=== PATIENT | female | born 1985 | race Two or more races ===

== ENCOUNTER 2020-12-31 16:32 | Outpatient (CLI) | payer OTHER ==
[~2020-12-31] VITALS: Ht 165.1 cm; Wt 86.0 kg
[2020-12-31 16:46] VITALS: BP 123/75
[2020-12-31] MEDS ORDERED: B-12100T2 PO (16:54)
[2020-12-31] MEDS ORDERED: FERR325T82 PO (16:54)
[2020-12-31] MEDS ORDERED: PULM0.25 NEB (16:54)
[2020-12-31] MEDS ORDERED: MAGN250T7 PO (16:54)
[2020-12-31] MEDS ORDERED: TUMS500C PO (16:54)
[2020-12-31] MEDS ORDERED: PULM1SUS INH (16:54)
[2020-12-31] MEDS ORDERED: MONT4CHW8 PO (16:54)
[2020-12-31] MEDS ORDERED: PRENTAB9 PO (16:54)
[2020-12-31] MEDS ORDERED: VITA100T59 PO (16:54)
[2020-12-31] MEDS ORDERED: LOMOTIL 2.5MG/0.025MG TABLET PO ONE (19:15)
--- NOTE | 2020-12-31 19:20 | IPNPDOC ---
Obstetrical Progress Note Date of Service Dec 31, 2020 Subjective 35 yo G1 @ 34W4D presents with c/o 3 days of diarrhea. reports non bloody and abdominal blaoting. she reports that today she started having abdominal cramps and come in to be checked. she was on quarantine for 10 days after a cowoker tested positive for covid and finished her isolation 2 days ago. she is lactose intolerante and had ice cream but reports after she started having diarrhea. she denies any nausea or vomiting, but not increased in acid reflux. she has no other concerns. exam bp 123/70's gen: well appeariung gravid female abd: gravid, non tender fht: 140, mOD BRIAN,+Accels,-decel---cat I tracing [place]: uterine irritability noted A/P 35 yo G1 @ 34W4D presents with c/o 3 days of diarrhea. HEMODYNAMICALLY STABLE. Fetus was initially with minimal variability and patient was given 1L of IVF. aftert that fetus became reactive. -will give lomotil and place at [place] [facility] -will test for covid vaccine- will call patient if possitive results for quarantine purpose -f/ u as oreviously scheduled on wednesday. Objective Vital Signs Date Time Temp Pulse Resp B/P (MAP) Pulse Ox O2 Delivery O2 Flow Rate FiO2 12/31/20 16:46 74 18 123/75 (91) JESSE VOSS MD Dec 31, 2020 7:20 pm
[2020-12-31] MEDS ORDERED: LOMO2.5T PO (19:21)
== END 2020-12-31 19:41 | disposition home or self-care (01) ==
LOC: M LDO 16:32
PROVIDERS: ATTEND Obstetrics & Gynecology
DX: O26.893 Other specified pregnancy related conditions, third trimester (principal); R25.2 Cramp and spasm; Z3A.34 34 weeks gestation of pregnancy; O99.283 Endocrine, nutritional and metabolic diseases complicating pregnancy, third trimester; E73.9 Lactose intolerance, unspecified; Z20.822 Contact with and (suspected) exposure to COVID-19; Z88.6 Allergy status to analgesic agent
CPT/HCPCS: 59025; G0378; G0463; U0002

== ENCOUNTER 2021-02-14 23:47 | Inpatient (IN) | payer OTHER ==
[~2021-02-14] VITALS: Ht 165.1 cm; Wt 90.7 kg
[~2021-02-14 23:47] MED LIST: B-12100T2 PO; FERR325T82 PO; LOMO2.5T PO; MAGN250T7 PO; MONT4CHW8 PO; PRENTAB9 PO; PULM0.25 NEB; PULM1SUS INH; TUMS500C PO; VITA100T59 PO
[2021-02-15] VITALS (27 sets, daily range): BP systolic 109–162; BP diastolic 55–96
--- NOTE | 2021-02-15 01:28 | HPEPDOC ---
Obstetrical History & Physical General Date of Admission History of Present Illness 35yo at 41+1 presents for contractions. Denies vaginal bleeding, loss of fluid. Endorses positive movement. 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 Surgical History: Other (lumpectomy 2006) Family History Family History Mother - high blood pressure, high cholesterol, breast cancer Father - high blood pressure Maternal grandmother - breast cancer, high blood pressure, stroke, obesity Paternal grandfather - stroke Social History Marital Status: Family situation: Spouse/partner home Psychosocial History: No pertinent psych hx * Smoker: non-smoker Alcohol: Denies Drugs: denies Abuse Violence Screening Have you been hit/kicked/slapp: No Have you been sexually assault: No Imunizations Tdap status: current Influenza Status: current Allergies Coded Allergies: ibuprofen (Verified Allergy, Severe, tightness in throat, 12/31/20) Medications Scheduled Ascorbic Acid (Vitamin C) 100 Mg Tablet, 1 TAB PO QPM Budesonide (Pulmicort) 0.25 Mg/2 Ml Ampul.neb, 1 VIAL NEB BID Cyanocobalamin (Vitamin B-12) (Vitamin B-12) 100 Mcg Tablet, 1 TAB PO DAILY Diphenoxylate HCl/Atropine (Lomotil 2.5-0.025 mg Tablet) 1 Each Tablet, 1 TAB PO QID Ferrous Sulfate (Iron) 325 Mg Tablet, 1 TAB PO BID Magnesium Oxide (Magnesium) 250 Mg Tablet, 250 MG PO DAILY Montelukast Sodium (Montelukast Sodium) 4 Mg Tab.chew, 1 TAB PO QPM No.137/Iron/Folic Acd ( Vitamin Tablet) 1 Each Tablet, 1 TAB PO DAILY Scheduled PRN Calcium Carbonate (Tums) 200 Mg Tab.chew, 2 TAB PO QID PRN for INDIGESTION Miscellaneous Medications Budesonide (Pulmicort) 1 Mg/2 Ml Ampul.neb, 1 MG INH Physical Examination Physical Examination GENERAL: Alert and oriented times three. ABDOMEN: Gravid and non-tender to touch. FETUS: Is vertex (VTX) by ultrasound HEART RATE: Regular rate . LUNGS: nonlabored breathing EXTREMITIES: No edema. Vital Signs/I&O Vital Signs Date Time Temp Pulse Resp B/P (MAP) Pulse Ox O2 Delivery O2 Flow Rate FiO2 02/15/21 00:08 98.4 80 18 130/81 (97) Laboratory Data CBC/BMP hct 30.8 plt 230 [id number] Urine Culture: No Growth Pertinent Laboratoy Data Blood Type: AB+ RBC Antibody Screen: Negative HIV: Negative Hepatitis B: Negative Rapid Plasma Reagin: Nonreactive Rubella: Immune Varicella: Immune Chlamydia/Gonorrhea: Negative Group B Streptococcus: Negative Quad Screen Test: Negative ([id number]) Glucose Tolerance Test: 119 Anatomy Ultrasound Placenta Location: Posterior Normal Anatomy: Yes Placenta Previa: No Steroid Therapy Steroid Therapy: No Vaginal Examination Dilation: 3 cm Presentation: Cephalic presentation Assessment Heart Rate (FHR): 135 Variability: Moderate Accelerations: Positive Decelerations: None Tocometer Contractions: Yes Frequency: regular, every 2-5 min. Multi-drug resistant Organism: No history of MDRO Assessment/Plan Assessment Khalida Morin is a 35-year-old at 41+1 weeks by LMP and 1T ultrasound. Presents to Labor and Delivery (L&D) in labor. GBS negative. Cephalic by ultrasound and leopolds. GBS negative. Currently 3cm, category I tracing raghav regularly. Problem list asthma migraines anemia oral HSV no history of genital outbreak/lesions Plan Admit and orient. Haul Driver and consent. Diet: clear liquid. Group B Streptococcus (GBS) [negative]. Labs and intravenous (IV) per unit protocol. Counseled on oxytocin and labor augmentation. Lactated Ringers (LR) at 125 mL/hr. Anticipate [normal spontaneous delivery ()]. C-S as appropriate. Labor and Delivery Counseling I counseled her on the risks of vaginal delivery including but not limited to infection, bleeding. Described hemorrhage response in detail including need for blood transfusion and hysterectomy as life saving measures. Described oxytocin labor augmentation process and continuous monitoring. Described indications for delivery, forceps and vacuum deliveries. Risks of delivery including bleeding, infection, damage to nearby structures. Talked about shoulder dystocia and necessary measures including possible inte ntional breaking of clavicle or other bones to save the baby. She indicated understanding and all questions were answered. SCOTT CONTE DO Feb 15, 2021 01:28
[2021-02-15] MEDS ORDERED: ONDANSETRON 4MG/2ML VIAL IV PRN ×3 (01:40→15:10)
[2021-02-15 01:50] LABS: HEMATOCRIT 39.8 % (36.0-47.0); HEMOGLOBIN 13.7 g/dl (12.0-15.5); MEAN CORPUSCULAR HEMOGLOBIN 32.1 pg (27.0-33.0); MEAN CORPUSCULAR HGB CONC 34.4 g/dl (32.0-36.5); MEAN CORPUSCULAR VOLUME 93.2 fl (80.0-96.0); PLATELET COUNT, AUTOMATED 197 10^3/uL (150-450); RED BLOOD COUNT 4.27 10^6/uL (4.00-5.40); WHITE BLOOD COUNT 14.7 10^3/uL (4.0-10.0)
[2021-02-15] MEDS ORDERED: PROMETHAZINE INJ 25 MG/ML VIAL (J2550) IV ONE (03:05)
[2021-02-15] MEDS: LR 1,000 ML IV SCH ×2 (03:50→09:15)
--- NOTE | 2021-02-15 06:48 | IPNPDOC ---
Obstetrical Progress Note Date of Service Feb 15, 2021 Subjective Pt uncomfortable appearing, currently on birthing ball with spouse and concrete floor installer supporting her. She is inquiring about pain control. Water is intact. Objective Vital Signs Date Time Temp Pulse Resp B/P (MAP) Pulse Ox O2 Delivery O2 Flow Rate FiO2 02/15/21 03:58 91 18 130/80 (97) 02/15/21 00:08 98.4 Assessment Heart Rate (FHR): 130 Variability: Moderate Accelerations: Positive Decelerations: None Heart Rate Tracing: Category I Tocometer Contractions: Yes Frequency: every 2-5 min. Sterile Vaginal Examination Dilation: 8 cm Effacement (%): 90% Station: -1 Cervical Consistency: Soft Cervical Position: Posterior Postion/Presentation: Cephalic presentation Assessment and Plan Age: 35 : 2 Term: 0 Pre-term: 0 Abortions: 1 Livin Status: Reassuring Group B Streptococcus: Negative Anticipate: Vaginal Delivery Additional Comments We discussed pain control and with delivery possibly soon I recommended epidural as the available option. Patient is requesting epidural at this time. She has made this progress naturally, no labor interventions are indicated at this time. -anesthesia notified for epidural -continue routine intrapartum care -anticipate vaginal delivery SCOTT CONTE DO Feb 15, 2021 06:48
[2021-02-15] MEDS ORDERED: FENTANYL 2MCG/ML ROPIVACAINE 0.2% IN 0.9% NACL 100ML IVBAG As Ordered ONE (07:00)
[2021-02-15] MEDS ORDERED: REFRIGERATOR IV KEYS XX PRN (08:15)
[2021-02-15] MEDS ORDERED: diphenhydrAMINE 50MG/ML VIAL (J1200) IV PRN (08:15)
[2021-02-15] MEDS ORDERED: LACTATED RINGER'S 1000 ML IV PRN (08:15)
[2021-02-15] MEDS ORDERED: NALOXONE INJ 0.4MG/1ML VIAL (J2310 PER 1MG) IV PRN (08:15)
[2021-02-15] MEDS ORDERED: EPIDURAL COMMENT XX SCH (08:15)
[2021-02-15] MEDS ORDERED: ePHEDrine SULFATE 25 MG/5 ML(5MG/ML) SYRINGE IV PRN (08:15)
[2021-02-15] MEDS ORDERED: EPIDURAL/PCA KEYS XX PRN (08:15)
[2021-02-15] MEDS ORDERED: FENTANYL/ROPIVACAINE/NACL BAG 100 ML EPIDURAL SCH (08:15)
--- NOTE | 2021-02-15 08:45 | IPNPDOC ---
Obstetrical Progress Note Date of Service Feb 15, 2021 Subjective Accepting care of this 35 yo @ 41w who is complicated by hx of asthma. she is in active labor now. FHT: 135, Mod nolan,+accels, -Decel--cat I tracing TOCO: 3-4/10 cve: 8/c/0, arom with light mec noted A/P Active labor. CAT I tracing. arom with light mec. continue active labor management. anticipate . Objective Vital Signs Date Time Temp Pulse Resp B/P (MAP) Pulse Ox O2 Delivery O2 Flow Rate FiO2 02/15/21 07:39 107 162/88 (112) 02/15/21 05:00 18 02/15/21 00:08 98.4 JESSE VOSS MD Feb 15, 2021 08:45
--- NOTE | 2021-02-15 12:52 | IPNPDOC ---
Obstetrical Progress Note Date of Service Feb 15, 2021 Subjective STRIPE NOTE FHT: 140, Mod nolan with episodes on Minimal variability when sleep cycles, +accels, -Decel---cat I tracing overall with episodes of cat II tracing with minimal variability when baby sleeps. SVE: Anterior lip per RN, still at 0 station @ 11 am Caspian: 4-5/10 A/P Active labor. anterior lip. will start pushing at 1 am. anticipate . Objective Vital Signs Date Time Temp Pulse Resp B/P (MAP) Pulse Ox O2 Delivery O2 Flow Rate FiO2 02/15/21 11:40 101 16 132/87 (102) 02/15/21 10:09 98.8 02/15/21 08:38 100 JESSE VOSS MD Feb 15, 2021 12:52
[2021-02-15] MEDS ORDERED: OXYTOCIN 30 UNITS IN 0.9% NaCl 500ML IV BAG (J2590) As Ordered ONE (13:07)
[2021-02-15] MEDS ORDERED: ANUSOL HC CREAM 30GM TOP PRN (15:10)
[2021-02-15] MEDS ORDERED: METHYLERGONOVINE MALEATE 0.2 MG TAB PO PRN (15:10)
[2021-02-15] MEDS ORDERED: OXYTOCIN DRIP 30 UNITS in IV 1 EA IV SCH (15:10)
[2021-02-15] MEDS ORDERED: DIBUCAINE 1% OINTMENT 30GM TOP PRN (15:10)
--- NOTE | 2021-02-15 15:23 | DNPDOC ---
[facility] Delivery Note Delivery Note DATE OF DELIVERY: 02/15/21 PREDELIVERY DIAGNOSIS: 41-1/7 weeks' gestation and labor. POST DELIVERY DIAGNOSIS: Delivered. PROCEDURE: Spontaneous vaginal delivery SUPERVISOR CUSTOMER SERVICES: Ted Rangel MD ANESTHESIA: Epidural ESTIMATED BLOOD LOSS: 250 mL. FINDINGS: 9 pound 10 ounce 4360g female , Score 8/9, no nuchal cord. DELIVERY SUMMARY: Patient is a 35 -year-old 2 now para 1011 who was admitted to labor and delivery in labor. Patient progressed to C/C/+2 and with good maternal effort delivered a viable . The infants head delivered OA. The head was allowed to spontaneously restitute SARINA. No nuchal cord upon delivery of the head. Anterior shoulder delivered with gentle downward traction followed by posterior shoulder and co rpus without difficulty. Normal 3-vessel cord clamped x 2 and cut by FOB after 1 min of delayed cord clamping. Spontaneous cry noted. placed on maternal abdomen for hemn-ga-vnau. Placenta delivered spontaneously and inspection of the placenta demonstrated that it was intact. The cord insertion appeared normal. The uterus was cleared of all clots and debris. Fundal massage until firm. 30 units of Pitocin administered per protocol and the patient required no additional uterotonics. Inspection of cervix, perineum, and vaginal wall revealed a left vaginal wall laceration that was repaired with a running locking with 2-0 vicryl and right labial laceration that was repaired with 2 figures of eights with good hemostasis. Repeat uterine examination noted uterine tone to be adequate and firm. Mom and stayed in L&D in hemodynamic stable condition upon my departure. Sponge, lap and needle count correct x 2. Ted OBJORY Physician JESSE VOSS MD Feb 15, 2021 15:22
[2021-02-15] MEDS: DOCUSATE SODIUM 100MG CAPSULE PO SCH (20:34)
[2021-02-15] MEDS: ACETAMINOPHEN 500 MG TAB PO PRN (20:35)
[2021-02-16 05:14] VITALS: BP 119/60
--- NOTE | 2021-02-16 07:24 | IPNPDOC ---
Progress Note Date of Service: Feb 16, 2021 Day#: 1 Progress Note Vital Signs Label Value Date Time Blood Pressure Assessment 119/60 (79) 02/16/21513 Source Automatic Cuff (NIBP) Respiratory Rate 16 bpm 02/16/21513 Pulse 94 02/16/21513 Patient Temperature 99.3 degrees F 02/16/21513 Temperature Source Temporal 02/16/21513 SUBJECT: Khalida is a 35 yo PPD1 S/P @ 41 weeks of a 9 pound 10 ounce 4360g female , Score 8/9, no nuchal cord. She has been ambulating, voiding spontaneously without issue and tolerating regular diet. Breast feeding without issue. Reports lochia is like a normal period. OBJECTIVE: VITAL SIGNS: Within normal limits, afebrile. Alert and oriented times three. normal work of breathing Heart rate: Regular rate and rhythm Abdomen: Fundus firm at U-2. ASSESSMENT: Khalida is a 35 yo PPD1 S/P @ 41 weeks of a 9 pound 10 ounce 4360g female infant, Score 8/9, no nuchal cord. Vitals within normal limits, afebrile, hemodynamically stable with no evidence of infection. PLAN: 1. Discharge to home tomorrow. 2. Tylenol and Motrin for pain. 3. Encourage breast feeding and ambulation. 4. undecided for BC- counseled on available contraceptive options. 5. Routine PP visit in 6 weeks in clinic. 6. Discussed return precautions at length. VS, I&O, 24H, Fishbone Vital Signs/I&O Vital Signs Date Time Temp Pulse Resp B/P (MAP) Pulse Ox O2 Delivery O2 Flow Rate FiO2 02/16/21 05:14 99.3 94 16 119/60 (79) 02/15/21 20:30 100 I&O- Last 24 Hours up to 6 AM 02/16/21 05:59 Intake Total 2655 ml Output Total 1120 ml Balance 1535 ml JESSE VOSS MD Feb 16, 2021 07:24
[2021-02-16] MEDS: DOCUSATE SODIUM 100MG CAPSULE PO SCH ×2 (07:43→21:00)
[2021-02-16] MEDS: PRENATAL VITAMINS CHEWABLE TABLET PO SCH (07:43)
[2021-02-16] MEDS: ACETAMINOPHEN 500 MG TAB PO PRN ×2 (07:43→16:56)
[2021-02-16 18:33] VITALS: BP 111/65
[2021-02-16 21:00] VITALS: BP 111/65
[2021-02-17] MEDS: ACETAMINOPHEN 500 MG TAB PO PRN ×2 (00:12→06:37)
[2021-02-17 06:00] VITALS: BP 109/56
--- NOTE | 2021-02-17 06:36 | OBDS ---
[facility] Obstetrical Discharge Sum. Obstetrical Discharge Summary Date: Feb 17, 2021 VDRL: ABO Blood Group (ab) Rh: Positive Rubella: Immune Sex: Female Anesthesia: Regional Anesthesia Episiotomy n/a A/P, Post Course List any complications Admission diagnosis: labor at late term ( 41 wks) Discharge diagnosis: vaginal delivery Condition at Discharge: stable Discharge Instructions:Home Activity: Pelvic rest Diet:regular Medications: picked up at [place] Follow-up: 6weeks pp Other: Khalida is a 35 yo PPD2 S/P @ 41 weeks of a 9 pound 10 ounce 4360g female infant, Score 8/9, no nuchal cord. Vitals within normal limits, afebrile, hemodynamically stable with no evidence of infection. ready for discharge JESSE VOSS MD Feb 17, 2021 06:36
[2021-02-17] MEDS: PRENATAL VITAMINS CHEWABLE TABLET PO SCH (07:53)
[2021-02-17] MEDS: DOCUSATE SODIUM 100MG CAPSULE PO SCH (07:53)
== END 2021-02-17 12:37 | disposition home or self-care (01) | DRG 807 ==
LOC: M LDO 23:47 → M LDI 02-15 01:34 → M OBS 02-15 17:44
PROVIDERS: ADMIT Obstetrics & Gynecology; ATTEND Obstetrics & Gynecology
PROC: 10E0XZZ Delivery of Products of Conception, External Approach (ICD-10-PCS; principal; 2021-02-15)
PROC: 0HQ9XZZ Repair Perineum Skin, External Approach (ICD-10-PCS; 2021-02-15)
DX: O48.0 Post-term pregnancy (principal); Z37.0 Single live birth; Z3A.41 41 weeks gestation of pregnancy; D64.9 Anemia, unspecified; O99.02 Anemia complicating childbirth; O70.0 First degree perineal laceration during delivery

== ENCOUNTER → 2022-04-24 | Outpatient (CLI) | payer OTHER ==
[~2022-04-24] MED LIST changes: +MONT4CHW10 PO; -MONT4CHW8 PO
== END ==
LOC: M WHC 14:47
PROVIDERS: ATTEND Registered Nurse
DX: Z34.92 Encounter for supervision of normal pregnancy, unspecified, second trimester (principal); Z3A.20 20 weeks gestation of pregnancy

== ENCOUNTER 2022-08-29 00:30 | Inpatient (IN) | payer OTHER ==
[~2022-08-29] VITALS: Ht 165.1 cm; Wt 92.9 kg
[2022-08-29] VITALS (33 sets, daily range): BP systolic 93–158; BP diastolic 47–94
[2022-08-29] MEDS ORDERED: OXYTOCIN DRIP 30 UNITS in IV 1 EA IV SCH ×2 (01:15→01:20)
[2022-08-29] MEDS ORDERED: OXYTOCIN DRIP 30 UNITS in IV 1 EA IV PRN ×6 (01:20)
[2022-08-29] MEDS ORDERED: LIDOCAINE 1% MDV 20ML VIAL INFIL PRN (01:20)
[2022-08-29] MEDS ORDERED: LR 1,000 ML IV SCH (01:20)
[2022-08-29] MEDS ORDERED: TRANEXAMIC ACID INJection 1,000 MG in NS 100 ML IV PRN (01:20)
[2022-08-29] MEDS ORDERED: METHYLERGONOVINE MALEATE 0.2MG/ML 1ML VIAL IM PRN (01:20)
[2022-08-29] MEDS ORDERED: OXYTOCIN INJ 10UNITS/ML 1ML VIAL IM PRN (01:20)
[2022-08-29] MEDS ORDERED: OXYTOCIN INJ 10UNITS/ML 1ML VIAL IV PRN (01:20)
[2022-08-29] MEDS ORDERED: CARBOPROST TROMETHAMINE 250 MCG/ML AMP IM PRN (01:20)
[2022-08-29] MEDS: LR 1,000 ML IV SCH ×3 (01:37→04:39)
[2022-08-29 01:40] LABS: HEMOGLOBIN 13.1 g/dl (12.0-15.5); MEAN CORPUSCULAR HEMOGLOBIN 31.2 pg (27.0-33.0); MEAN CORPUSCULAR HGB CONC 33.6 g/dl (32.0-36.5); MEAN CORPUSCULAR VOLUME 92.9 fl (80.0-96.0); PLATELET COUNT, AUTOMATED 175 10^3/uL (150-450); WHITE BLOOD COUNT 14.2 10^3/uL (4.0-10.0)
[2022-08-29] MEDS ORDERED: LR 500 ML IV PRN (02:10)
[2022-08-29] MEDS ORDERED: ONDANSETRON 4MG 2ML VIAL IV PRN (02:10)
[2022-08-29] MEDS ORDERED: diphenhydrAMINE 50MG/ML VIAL IV PRN (02:10)
[2022-08-29] MEDS ORDERED: FENTANYL/ROPIVACAINE/NACL BAG 100 ML EPIDURAL SCH (02:10)
[2022-08-29] MEDS ORDERED: NALOXONE INJ 0.4MG/1ML VIAL IV PRN (02:10)
[2022-08-29] MEDS ORDERED: EPIDURAL/PCA KEYS XX PRN (02:10)
[2022-08-29] MEDS: ePHEDrine SULFATE 25 MG/5 ML(5MG/ML) SYRINGE IVP PRN ×2 (04:13→04:37)
[2022-08-29] MEDS ORDERED: MOM 30ML SUSPENSION UDC PO PRN (07:45)
[2022-08-29] MEDS ORDERED: DIBUCAINE 1% OINTMENT 30GM TOP PRN (07:45)
[2022-08-29] MEDS ORDERED: METHYLERGONOVINE MALEATE 0.2 MG TAB PO PRN (07:45)
[2022-08-29] MEDS ORDERED: IBUPROFEN 800 MG TAB PO PRN (07:45)
[2022-08-29] MEDS ORDERED: RHOGAM 300MCG (1500IU) INJ IM SCH (07:45)
[2022-08-29] MEDS ORDERED: PRENATAL VITAMINS CHEWABLE TABLET PO SCH ×2 (09:00)
[2022-08-29] MEDS ORDERED: ONDANSETRON 4MG 2ML VIAL IV ONE (09:10)
[2022-08-29] MEDS: ACETAMINOPHEN 500 MG TAB PO PRN ×2 (12:27→20:25)
[2022-08-29] MEDS ORDERED: oxyCODONE 5MG TAB PO PRN (16:10)
[2022-08-29] MEDS: DOCUSATE SODIUM 100MG CAPSULE PO PRN ×2 (16:16→20:26)
[2022-08-29] MEDS: IBUPROFEN 800 MG TAB PO PRN (23:41)
[2022-08-30] MEDS: ACETAMINOPHEN 500 MG TAB PO PRN ×2 (05:46→13:31)
[2022-08-30 06:07] VITALS: BP 98/55
[2022-08-30] MEDS: IBUPROFEN 800 MG TAB PO PRN (08:24)
[2022-08-30] MEDS ORDERED: COLA100C5 PO (10:13)
[2022-08-30] MEDS ORDERED: ACET-683 PO (10:13)
[2022-08-31] MEDS ORDERED: MEASLES,MUMPS,RUBELLA VACCINE INJ (MMR-II) SC.IMMUN ONE (09:00)
== END 2022-08-30 17:14 | disposition home or self-care (01) | DRG 807 ==
LOC: M LDO 00:30 → M LDI 01:05 → M OBS 11:00
PROVIDERS: ADMIT Obstetrics & Gynecology; ATTEND Obstetrics & Gynecology
PROC: 10E0XZZ Delivery of Products of Conception, External Approach (ICD-10-PCS; principal; 2022-08-29)
PROC: 0HQ9XZZ Repair Perineum Skin, External Approach (ICD-10-PCS; 2022-08-29)
DX: O48.0 Post-term pregnancy (principal); Z37.0 Single live birth; Z3A.40 40 weeks gestation of pregnancy; O09.523 Supervision of elderly multigravida, third trimester; O26.00 Excessive weight gain in pregnancy, unspecified trimester; Z88.6 Allergy status to analgesic agent; O70.0 First degree perineal laceration during delivery